=== PATIENT | female | born 1985 | race Two or more races ===

== ENCOUNTER 2024-07-02 10:31 | Emergency (ER) | payer BC, SELFPAY ==
[2024-07-02 10:37] VITALS: BP 139/98; PULSE 97; RESP 18; TEMP 36.4; O2SAT 96; BMI 27.6
--- NOTE | 2024-07-02 10:45 | PD.EDEYE ---
ED Eye Problem RME/HPI General Chief complaint: Eye Problems Stated complaint: CONTACTS STUCK IN EYES Time Seen by Provider: 07/02/24 10:39 Source: patient Arrival date/time: 07/02/24 10:31 38-year-old female presents emergency department complaining of bilateral contact lenses stuck in eyes and unable to remove since last night. Patient reports was drinking last night and unsure if removed them but has sensation they are still in place. Patient endorses yellow drainage from bilateral eyes this morning. Patient denies any fever, chills, vision changes, dizziness, cough, sob, or any other associated symptoms. Mode of arrival: ambulatory Limitations: no limitations Related Data Previous Rx's ?Medication ?Instructions ?Recorded tobramycin 0.3 % eye drops 2 drp ophthalmic (eye) QID 5 days 07/02/24 #5 mL Allergies Allergy/AdvReac Type Severity Reaction Status Date / Time shrimp Allergy Verified 07/02/24 10:34 Review of Systems Review of Systems Systems Reviewed: All systems reviewed, normal except as documented Constitutional Constitutional: Reports system reviewed and no additional complaints, except as documented, Denies body ache(s), Denies chills and Denies fever(s) Eyes Eyes: Reports system reviewed and no additional complaints, except as documented, Denies change in vision, Reports eye discharge, Reports irritation, Reports itchy eyes and Reports other (foreign body sensation) ENT Ears, Nose, Mouth, and Throat: Reports system reviewed and no additional complaints, except as documented, Denies disequilibrium, Denies dizziness, Denies sore throat and Denies vertigo Cardiovascular Cardiovascular: Reports system reviewed and no additional complaints, except as documented, Denies chest pain and Denies dyspnea Respiratory Respiratory: Reports system reviewed and no additional complaints, except as documented, Denies chest congestion, Denies cough and Denies dyspnea Gastrointestinal Gastrointestinal: Reports system reviewed and no additional complaints, except as documented, Denies abdominal pain, Denies nausea and Denies vomiting Musculoskeletal Musculoskeletal: Reports system reviewed and no additional complaints, except as documented, Denies abnormal gait and Denies arthralgias Integumentary/Breasts Skin/Breast: Reports system reviewed and no additional complaints, except as documented, Denies erythema, Denies rash and Denies wounds Neurologic Neurologic: Reports system reviewed and no additional complaints, except as documented, Denies abnormal gait, Denies disequilibrium, Denies dizziness and Denies vertigo Allergic/Immunologic Allergic/Immunologic: Reports itchy eyes Past Medical History Social History SMOKING STATUS: Never smoker ED Exam General Limitations: Present no limitations General appearance: Present alert and in no apparent distress Head Head exam: Present atraumatic Eye Eye exam: Present normal appearance, PERRL, EOMI, scleral icterus and conjunctival injection Expanded Eye Exam Eyelids: bilateral: erythema and swelling eyelids Pupils: Bilateral: regular, round and reactive Sclera/Conjunctival: bilateral: injection ENT ENT exam: Present normal exam, normal oropharynx and mucous membranes moist Neck Neck exam: Present normal inspection, full ROM and trachea midline Chest Chest inspection: Present normal inspection and symmetric chest wall rise Respiratory Respiratory exam: Present normal lung sounds bilaterally Cardiovascular Cardiovascular exam: Present regular rate, normal rhythm and normal heart sounds Abdominal Exam Abdominal exam: Present soft and normal bowel sounds Extremities Exam Extremities exam: Present normal inspection and full ROM Back Exam Back exam: Present normal inspection and full ROM Neurological Exam Neurological exam: Present alert, oriented X3 and CN II-XII intact Psychiatric Psychiatric exam: Present normal affect and normal mood Skin Skin exam: Present warm, dry, intact and normal color Course Quality Measures none Orders Category Date Time Status Howard Lamp to Bedside X1 Care 07/02/24 10:45 Completed Fluorescein Sodium [[id number]] Med 07/02/24 10:45 Discontinued 1 mg RIGHT EYE X1 ONE TETRACAINE Op Elina 0.5% [Pontocaine Op Elina 0.5%] Med 07/02/24 10:45 Discontinued 1 drop RIGHT EYE X1 ONE Vital Signs Vital signs: Vital Signs Temperature 97.6 F 07/02/24 10:37 Pulse Rate 97 07/02/24 10:37 Respiratory Rate 18 07/02/24 10:37 Blood Pressure 139/98 H 07/02/24 10:37 Pulse Oximetry (%) 96 07/02/24 10:37 Oxygen Delivery Method Room Air 07/02/24 10:37 96% RA WNL. Procedures -ED Howard Lamp Exam Bilateral eyes: Flourescein uptake:: Yes Howard Lamp Findings: Normal Additional comments: No corneal abrasions or corneal ulcers and unable to visualize foreign body or contacts. Eye MDM Narrative MDM Narrative:: 38-year-old female presents emergency department complaining of bilateral contact lenses stuck in eyes and unable to remove since last night. Patient reports was drinking last night and unsure if removed them but has sensation they are still in place. Patient endorses yellow drainage from bilateral eyes this morning. Patient denies any fever, chills, vision changes, dizziness, cough, sob, or any other associated symptoms. EYE Bilateral upper and lower eyelid edema +1 with visible yellow drainage PERRLA bilateral eyes. Howard lamp no foreign body or corneal abrasions observed. Patient discharged on eye drop antibiotics and instructed follow up with optholmologist on Wednesday. Instructed to return to ER for any change in vision or worsening symptoms. Patient data External records reviewed:: [facility] previous records Clinical information provided by:: patient Social determinants that could affect healthcare access:: none Patient has the following chronic illnesses:: n/a How is presenting disease/condition affected by chronic disease/condition?: no chronic disease Evaluation data The following diagnostics were reviewed and interpreted by me:: other (specify) (n/a) Lab and/or radiology exams considered but not ordered:: n/a Interpretation Summary: n/a Medications / Prescriptions Medications or Prescriptions considered but not ordered:: ordered Medication administrations:: Medication Administration History Discontinued Medications Fluorescein Sodium (Fluorescein Sod 1 Mg Strp) 1 mg RIGHT EYE X1 ONE Stop: 07/02/24 10:46 Last Admin: 07/02/24 11:31 Dose: 1 mg Documented By: DO Comments: used by provider Tetracaine HCl (Tetracaine Pf Op Elina 0.5% 4 Ml Drpette) 1 drop RIGHT EYE X1 ONE Stop: 07/02/24 10:46 Last Admin: 07/02/24 11:31 Dose: 1 drop Documented By: DO Comments: used by provider given Consultations Consultation(s) initiated? (list below): No Diagnosis Eye Problem Differential Diagnosis: corneal abrasion, conjunctivitis, acute iritis and periorbital cellulitis Most likely diagnosis given after review of the tests above:: Contacts lens stuck Admission Indicated Admission indicated?: not indicated Admission Request Was there a request for admission?: No Disposition Plan Disposition Plan: Discharge Discharge Attestation Discharge Attestation: The patient and all family members were given an opportunity to ask questions and understood the discharge instructions. Discharge instructions specifically effects, indications for sooner follow up or return to the emergency department, and the expected course of current diagnosis. Patient condition: Stable Discharge Plan Plan Patient Disposition: HOME (Self Care) Disposition Comment: Stable Prescriptions/Referrals Prescriptions/Med Rec: New tobramycin 0.3 % drops 2 drp ophthalmic (eye) QID 5 Days Qty: 5 0RF Referrals: Yohana Marcano MD [Primary Care Provider] - In 1 week Problem List Clinical Impression: Contact lens stuck Patient/Caregiver Discharge Instructions Discharge Activity: activity as tolerated Education Materials: How the Eye Works Additional Instructions: Apply medication as prescribed. Follow-up with clinical research nurse as discussed on Wednesday. Return to the emergency department for any change in vision or worsening symptoms. Print Language: [place] Stand Alone Forms: Kristy Award Info., Patient Portal Info Letter PA/PROPERTY COORDINATOR Supervising Physician PA/PROPERTY COORDINATOR Supervising Physician: Dr. Hermosillo
[2024-07-02] MEDS: FLUORESCEIN SOD 1 MG STRP RIGHT EYE (11:31)
[2024-07-02] MEDS: TETRACAINE PF OP SOL 0.5% 4 ML DRPETTE 1 DROP RIGHT EYE (11:31)
== END 2024-07-02 12:06 | disposition home or self-care (01) ==
PROVIDERS: Emergency Provider Emergency Medicine; PCP Internal Medicine
DX: H02.845 Edema of left lower eyelid (principal); H02.842 Edema of right lower eyelid; H02.841 Edema of right upper eyelid; H02.844 Edema of left upper eyelid; W44.8XXA Other foreign body entering into or through a natural orifice, initial encounter
CPT/HCPCS: 99283